=== PATIENT | male | born 1965 | race Caucasian/White ===

== ENCOUNTER 2023-01-05 10:18 | Emergency (ER) | payer MEDICAID ==
[~2023-01-05] VITALS: Ht 167.6 cm; Wt 75.0 kg
[~2023-01-05 10:18] MED LIST: ENAL20TA18 PO
[2023-01-05 10:26] VITALS: BP 158/74
== END 2023-01-05 17:13 | disposition home or self-care (01) ==
LOC: ER 10:18
DX: M79.672 Pain in left foot (principal); F15.10 Other stimulant abuse, uncomplicated
CPT/HCPCS: 73590; 73610; 73630; 99284